=== PATIENT | male | born 1950 | race Caucasian/White ===

== ENCOUNTER 2023-12-02 19:54 | Emergency (ER) | payer OTHER, MEDICARE ==
[~2023-12-02] VITALS: Ht 177.8 cm; Wt 106.6 kg
[2023-12-02 20:15] VITALS: BP_SYST 131; PULSE 81; RESP 19; TEMP 97.5; O2SAT 95
[2023-12-02] MEDS ORDERED: IBUP-1969 PO (21:35)
[2023-12-02 22:13] VITALS: BP_SYST 131; PULSE 81; RESP 19; TEMP 97.5; O2SAT 95
== END 2023-12-02 22:13 | disposition home or self-care (01) ==
LOC: SED 19:54
DX: S00.83XA Contusion of other part of head, initial encounter (principal); R42 Dizziness and giddiness; Z88.0 Allergy status to penicillin; Z88.2 Allergy status to sulfonamides; Z79.899 Other long term (current) drug therapy; V89.2XXA Person injured in unspecified motor-vehicle accident, traffic, initial encounter; Y93.89 Activity, other specified; Y92.89 Other specified places as the place of occurrence of the external cause; Y99.8 Other external cause status
CPT/HCPCS: 70450-TC; 99284